=== PATIENT | female | born 1995 | race Caucasian/White ===

== ENCOUNTER 2025-05-06 12:06 | Inpatient (IN) | payer OTHER ==
[~2025-05-06] VITALS: Ht 182.9 cm; Wt 103.7 kg
[2025-05-06] MEDS: SODIUM CHLORIDE 0.9% 1,000 ML IV ONE ×2 (13:46→15:09)
[2025-05-06 14:05] LABS: BASOPHILS % (AUTO) 0.5 % (0.0-2.0); EOSINOPHILS % (AUTO) 0.2 % (1.0-6.0); HEMATOCRIT 49.2 % (41-53); HEMOGLOBIN 16.8 g/dL (13.5-17.5); LYMPHOCYTES # (AUTO) 1.1 K/uL (1.0-4.8); LYMPHOCYTES % (AUTO) 13.2 % (22.0-44.0); MEAN CORPUSCULAR HEMOGLOBIN 29.6 pg (26.0-34.0); MEAN CORPUSCULAR HGB CONC 34.2 G/dL (31.0-37.0); MEAN CORPUSCULAR VOLUME 87 fL (80-100); MONOCYTES # (AUTO) 0.4 K/uL (0.1-1.0); MONOCYTES % (AUTO) 4.5 % (2.0-9.0); NEUTROPHILS # (AUTO) 6.6 K/uL (1.8-7.7); NEUTROPHILS % (AUTO) 81.6 % (40.0-70.0); PLATELET COUNT (AUTO) 263 K/uL (150-450); RED BLOOD CELL COUNT(AUTO) 5.68 MIL/uL (4.50-5.90); RED CELL DISTRIBUTION WIDTH 13.1 % (11.5-14.5); WHITE BLOOD COUNT (AUTO) 8.1 K/uL (4.5-11.0)
[2025-05-06 14:10] LABS: ANION GAP 8 mmol/L (8-16); CALCIUM, TOTAL 9.7 mg/dL (8.8-10.5); CARBON DIOXIDE 29 mmol/L (22-29); CHLORIDE 104 mmol/L (98-107); CREATININE 0.93 mg/dL (0.60-1.30); GLOMERULAR FILTR. RATE CALC > 60 mL/min (>60); GLUCOSE,RANDOM 100 mg/dL (70-110); POTASSIUM 3.7 mmol/L (3.5-5.1); SODIUM SERUM 141 mmol/L (136-145); UREA NITROGEN, BLOOD 11 mg/dL (7-18)
[2025-05-06 14:15] LABS: CREATINE KINASE, TOTAL ONLY 97 U/L (39-308)
[2025-05-06 14:19] LABS: TROPONIN I-HIGH SENSITIVITY 4 ng/L (<76)
[2025-05-06 14:21] LABS: LACTIC ACID 1.6 mmol/L (0.4-2.0)
[2025-05-06] MEDS ORDERED: ZOLPIDEM TARTRATE 5 MG TABLET PO PRN (15:00)
[2025-05-06] MEDS ORDERED: MAGNESIUM HYDROXIDE SUSPENSION 30 ML UDCUP PO PRN (15:00)
[2025-05-06] MEDS: HEPARIN SODIUM,PORCINE 5,000 UNITS/ML VIAL SQ SCH (15:09)
[2025-05-06] MEDS: QUEtiapine FUMARATE 300 MG TABLET PO SCH (21:00)
[2025-05-06 21:35] LABS: GLUCOMETER DEV NAME(LOC) 6S.1D; GLUCOSE,POINT OF CARE 102 MG/DL (70-110)
[2025-05-06 21:48] VITALS: BP 142/92; PULSE 75; RESP 18; TEMP 97.8; O2SAT 99
[2025-05-07 01:19] LABS: APPEARANCE,URINE CLEAR (CLEAR); BILIRUBIN,URINE NEGATIVE (NEGATIVE); COLOR,URINE LIGHT YELLOW (YELLOW); GLUCOSE, URINE (UA) NEGATIVE (NEGATIVE); KETONES,URINE NEGATIVE (NEGATIVE); LEUKOCYTE ESTERASE ,URINE NEGATIVE (NEGATIVE); NITRATE,URINE NEGATIVE (NEGATIVE); OCCULT BLOOD,URINE NEGATIVE (NEGATIVE); PH,URINE 7.5 (5.0-8.0); PH,URINE DRUG SCREEN 7.5 (5.0-8.0); PROTEIN,URINE NEGATIVE (NEGATIVE); SPECIFIC GRAVITIY, URINE 1.016 (1.003-1.030); UROBILINOGEN,URINE <=1.0 mg/dL (<=1.0)
[2025-05-07 01:22] LABS: BACTERIA,URINE None Seen /HPF (None Seen); RBC,URINE None Seen /HPF (0-2); SQUAMOUS EPITHELIAL CELL,UR None Seen /LPF (None Seen); WBC,URINE None Seen /HPF (0-5)
[2025-05-07 01:26] LABS: ALCOHOL, URINE DRUG SCREEN NEGATIVE (NEGATIVE); AMPHET/METH SCREEN,URINE NEGATIVE (NEGATIVE); BARBITURATE SCREEN, URINE NEGATIVE (NEGATIVE); BENZODIAZEPINES SCREEN,URINE NEGATIVE (NEGATIVE); CANNABINOID SCREEN,URINE NEGATIVE (NEGATIVE); COCAINE SCREEN,URINE NEGATIVE (NEGATIVE); METHADONE SCREEN, URINE NEGATIVE (NEGATIVE); OPIATE SCREEN,URINE NEGATIVE (NEGATIVE); PHENCYCLIDINE SCREEN,URINE NEGATIVE (NEGATIVE)
[2025-05-07 05:01] VITALS: BP 145/86; PULSE 78; RESP 18; TEMP 98.2; O2SAT 99
[2025-05-07 08:08] VITALS: BP 149/76; PULSE 75; RESP 19; TEMP 98.6; O2SAT 99
[2025-05-07] MEDS: FOLIC ACID 1 MG TABLET PO SCH (09:00)
[2025-05-07] MEDS: FAMOTIDINE 20 MG TABLET PO SCH (09:00)
[2025-05-07] MEDS ORDERED: QUET300T2 PO (12:50)
[2025-05-07] MEDS: ACETAMINOPHEN 325 MG TABLET PO PRN (15:34)
[2025-05-07 19:13] VITALS: BP 143/95; PULSE 98; RESP 19; TEMP 97.7; O2SAT 98
[2025-05-07] MEDS: LITHIUM CARBONATE 300 MG ER TABLET PO SCH (20:12)
[2025-05-08 04:13] VITALS: BP 134/86; PULSE 79; RESP 18; TEMP 96.9; O2SAT 100
[2025-05-08 08:01] VITALS: BP 131/99; PULSE 60; RESP 18; TEMP 98.6; O2SAT 100
[2025-05-08 19:18] VITALS: BP 148/92; PULSE 87; RESP 18; TEMP 98.2; O2SAT 99
[2025-05-09 06:58] VITALS: BP 129/75; PULSE 60; RESP 18; TEMP 97.8; O2SAT 99
[2025-05-09 09:11] VITALS: BP 158/90; PULSE 104; RESP 20; TEMP 98; O2SAT 100
[2025-05-09 19:46] VITALS: BP 142/80; PULSE 89; RESP 18; TEMP 98.1; O2SAT 97
[2025-05-09] MEDS: QUEtiapine FUMARATE 200 MG TABLET PO SCH (20:31)
[2025-05-09] MEDS: LITHIUM CARBONATE 300 MG ER TABLET PO SCH (20:31)
[2025-05-09] MEDS ORDERED: LITHIUM CARBONATE 300 MG ER TABLET PO SCH (21:00)
[2025-05-10 03:59] VITALS: BP 118/77; PULSE 75; RESP 18; TEMP 97.7; O2SAT 97
[2025-05-10 08:01] VITALS: BP 142/81; PULSE 88; RESP 17; TEMP 97.9; O2SAT 97
[2025-05-10] MEDS ORDERED: FAMO20 PO (14:13)
[2025-05-10] MEDS ORDERED: FOLI-130 PO (14:14)
[2025-05-10] MEDS ORDERED: LITH300T45 PO (14:16)
[2025-05-10] MEDS ORDERED: QUET200T PO (14:17)
[2025-05-10] MEDS ORDERED: ACET-2247 PO (14:18)
[2025-05-10 20:28] VITALS: BP 139/96; PULSE 87; RESP 20; TEMP 98.1; O2SAT 100
== END 2025-05-10 21:05 | DRG 812 ==
LOC: EMS 12:14 → EDH 14:54 → 6S 20:50
PROVIDERS: ADMIT Internal Medicine; ATTEND Internal Medicine
DX: D57.1 Sickle-cell disease without crisis (principal); F84.5 Asperger's syndrome; R45.851 Suicidal ideations; F44.9 Dissociative and conversion disorder, unspecified; F31.9 Bipolar disorder, unspecified; E66.9 Obesity, unspecified; F41.9 Anxiety disorder, unspecified; F43.10 Post-traumatic stress disorder, unspecified; F20.9 Schizophrenia, unspecified; G89.4 Chronic pain syndrome; F90.9 Attention-deficit hyperactivity disorder, unspecified type; J45.909 Unspecified asthma, uncomplicated; Z76.5 Malingerer [conscious simulation]; Z88.6 Allergy status to analgesic agent; Z68.31 Body mass index [BMI] 31.0-31.9, adult; Z91.199 Patient's noncompliance with other medical treatment and regimen due to unspecified reason; Z88.8 Allergy status to other drugs, medicaments and biological substances
CPT/HCPCS: 71045; 80048; 80178; 80307; 81001; 82550; 82962; 83605; 84484; 85025; 93005; 97163; 97530; 99285; J1644; 36415-L1; 36415-TC